=== PATIENT | female | born 2005 | race Caucasian/White ===

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

== ENCOUNTER 2023-12-26 19:49 | Emergency (ER) | payer OTHER ==
[~2023-12-26] VITALS: Ht 167.6 cm; Wt 49.4 kg
[2023-12-26 20:05] VITALS: BP 112/75; PULSE 97; RESP 18; TEMP 98.7; O2SAT 98
[2023-12-26] MEDS ORDERED: BENZ-300 PO (21:15)
[2023-12-26] MEDS ORDERED: IBUP-1842 PO (21:15)
[2023-12-26] MEDS ORDERED: GUAI10LI4 PO (21:15)
[2023-12-26] MEDS ORDERED: AMOX500C25 PO (21:15)
[2023-12-26 21:32] LABS: FLU A ANTIGEN negative (NEGATIVE); FLU B ANTIGEN NEGATIVE (NEGATIVE)
== END 2023-12-26 21:22 | disposition home or self-care (01) ==
LOC: MED 19:49
DX: J06.9 Acute upper respiratory infection, unspecified (principal); Z20.822 Contact with and (suspected) exposure to COVID-19; J04.0 Acute laryngitis; Z79.899 Other long term (current) drug therapy
CPT/HCPCS: 71045; 87081; 99284